=== PATIENT | male | born 1975 | race Caucasian/White ===

== ENCOUNTER → 2024-04-06 10:17 | Outpatient (CLI) | payer BC, SELFPAY ==
--- NOTE | 2024-04-06 10:19 | DI.RAD.S_ITS ---
PROCEDURE: XR CHEST 2V INDICATIONS: Shortness of breath TECHNIQUE: 2 views of the chest were acquired. COMPARISON: None. FINDINGS: Surgical changes and devices: None. Lungs and pleura: Right lower lobe focal infiltrate noted, particularly evident on the lateral exam. No pleural effusion or pneumothorax. Mediastinum: Mediastinal contours are normal. Heart size is normal. Bones and chest wall: No suspicious bony abnormalities. Soft tissues appear unremarkable. IMPRESSION: Pneumonia Approved by: Stuart Barahona M.D. on 04/06/2024 at 12:22
== END ==
PROVIDERS: Referring Provider Registered Nurse; Visit Provider Registered Nurse
DX: J18.9 Pneumonia, unspecified organism (principal); R06.02 Shortness of breath
CPT/HCPCS: 71046